=== PATIENT | male | born 1970 | race Caucasian/White ===

== ENCOUNTER 2023-04-01 06:55 | Outpatient (OUT) | payer OTHER, SELFPAY ==
[2023-04-01 07:15] LABS: Basophils Absolute Auto 0.1 10^3/uL (0.0-0.1); Basophils Percent Auto 1.2 % (0.2-2.0); Eosinophils Absolute Auto 0.2 10^3/uL (0.0-0.7); Eosinophils Percent Auto 3.3 % (0.9-7.0); Hematocrit 45.6 % (42.0-54.0); Hemoglobin 15.1 g/dL (14.0-18.0); Immature Granulocytes Abs Auto 0.01 10^3/uL (0.00-0.03); Immature Granulocytes Pct Auto 0.2 % (0.0-0.5); Lymphocytes Absolute Auto 1.9 10^3/uL (1.2-3.8); Lymphocytes Percent Auto 32.4 % (20.5-60.0); Mean Corpuscular HGB Conc 33.1 g/dL (29.9-35.2); Mean Corpuscular Hemoglobin 29.8 pg (25.9-34.0); Mean Corpuscular Volume 90.1 fL (80.0-94.0); Mean Platelet Volume 9.3 fL (9.5-13.5); Monocytes Absolute Auto 0.6 10^3/uL (0.3-0.8); Neutrophils Percent Auto 51.9 % (43.0-75.0); Platelet Count 342 10^3/uL (150-450); Red Blood Count 5.06 10^6/uL (4.70-6.10); Red Cell Distribution Width 12.2 % (11.0-15.0); White Blood Count 5.7 10^3/uL (4.0-11.0)
[2023-04-01 07:34] LABS: Alanine Aminotransferase 44 U/L (16-63); Albumin Level 3.7 g/dL (3.4-5.0); Alkaline Phosphatase 59 U/L (46-116); Anion Gap 10.3; Aspartate Amino Transferase 33 U/L (15-37); BUN Creatinine Ratio 19.8; Bilirubin Total 0.7 mg/dL (0.2-1.0); Chloride 105 mmol/L (98-107); Chol HDL Ratio 2.2; Cholesterol 187 mg/dL (<=200); Estimated GFR (African America >60 (>=60); Estimated GFR (Non-African Ame >60 (>=60); Globulin 3.6 g/dL; Glucose 95 mg/dL (74-106); HDL Cholesterol 84 mg/dL (40-60); Potassium 4.3 mmol/L (3.5-5.1); Sodium 142 mmol/L (136-145); Total Protein 7.3 g/dL (6.4-8.2); Triglycerides 31 mg/dL (<=150); VLDL CHOLESTEROL 6.2 mg/dL
[2023-04-01 08:00] LABS: Prostate Specific Antigen Dx 1.04 ng/mL (<=4.00)
== END 2023-04-01 06:56 | disposition home or self-care (01) ==
LOC: LAB 06:59
PROVIDERS: PCP Family Medicine; Visit Provider Family Medicine
DX: R73.09 Other abnormal glucose (principal); I10 Essential (primary) hypertension; F43.22 Adjustment disorder with anxiety; E29.1 Testicular hypofunction; R35.1 Nocturia
CPT/HCPCS: 36415; 80053; 80061; 84153; 85025

== ENCOUNTER 2024-10-12 07:07 | Outpatient (OUT) | payer OTHER, SELFPAY ==
--- OUTSIDE RECORDS SUMMARY | 2024-10-12 07:11 | XMS_ITS | CCD ---
Author Organization [facility] Care Team Providers Care Neonatal Pediatric Nurse Name Role Phone CHARLETTE PARTIDA Attending Unavailable CHARLETTE PARTIDA Admitting Unavailable CHARLETTE PARTIDA Primary Care Unavailable CHARLETTE PARTIDA Consulting Unavailable CHARLETTE PARTIDA Attending Unavailable CHARLETTE PARTIDA Admitting Unavailable CHARLETTE PARTIDA Consulting Unavailable Leonarda Ogden Unavailable Matt JONES Attending Unavailable Matt JONES Attending Unavailable Nicol LANCASTER Attending Unavailable Charlette Partida MD Primary Care Provider CHARLETTE PARTIDA Attending Unavailable Allergies Allergy Classification Reported Allergen(s) Allergy Type Date of Onset Reaction(s) Facility (5 sources) Codeine; Translations: [codeine] Drug Allergy 12-23-2022 [facility] Repository Medications Current Medications Medication Drug Class(es) Dates Sig (Normalized) Sig (Original) ALPRAZolam 0.5 mg oral tablet (4 sources) Benzodiazepine Start: 08-01-2024 End: 10-03-2024 take 1 tablet by mouth in the morning ALPRAZolam (Xanax) 0.5 MG tablet Indications: Adjustment disorder with anxiety Take 1 tablet (0.5 mg) by mouth in the morning and 1 tablet (0.5 mg) before bedtime. Do all this for 14 days. 28 tablet 09/19/2024 10/03/2024 Active amLODIPine 5 mg oral tablet (5 sources) Dihydropyridine Calcium Channel [place] Start: 05-27-2024 take 1 tablet by mouth once daily amLODIPine (Norvasc) 5 MG tablet Indications: Hypertension, unspecified type TAKE 1 TABLET BY MOUTH EVERY DAY AT THE SAME TIME EACH TIME 90 tablet 1 05/27/2024 Active Start: 07-18-2023 Amlodipine Act yasmeen MG PO July 18, 2023 12:00am take 1 tablet by sheryl th once daily amLODIPine Besylate 5 MG TAKE ONE TABLET BY MOUTH DAILY Oral for 30 Days Active Azithromycin (1 source) Macrolide Antimicrobial Start: 07-18-2023 Azithromycin Active 0 PO .COMPLEX July 18, 2023 12:00am For 250 mg dose pack: take 500 mg today (day 1), then 250 mg for 4 days (days 2-5) PO busPIRone hydrochloride 10 mg oral tablet (3 sources) Start: 07-22-2024 End: 08-21-2024 take 1 tablet by mouth in the morning, then take 1 tablet by mouth in the evening, then take 1 tablet by mouth at bedtime busPIRone (Buspar) 10 MG tablet Indications: Adjustment disorder with anxiety Take 1 tablet (10 mg) by mouth in the morning and 1 tablet (10 mg) in the evening and 1 tablet (10 mg) before bedtime. 90 tablet 07/22/2024 Active cyclobenzaprine hydrochloride 10 mg oral tablet (1 source) Muscle Relaxant Start: 12-18-2022 take 1 tablet by mouth every eight hours as needed Cyclobenzaprine HCl 10 MG 1 tablet Orally every 8 hours prn for 7 days Dec, Active hydroCHLOROthiazide 25 mg oral tablet (1 source) Thiazide Diuretic take 1 tablet by mouth once daily in the morning hydroCHLOROthiazide 25 MG TAKE ONE TABLET BY MOUTH DAILY IN THE MORNING Oral for 30 Days Active methylPREDNISolone 4 mg oral tablet (1 source) Corticosteroid Start: 07-18-2023 take 1 tablet by mouth once Methylprednisolone (Medrol (Josh)) 4 mg tablets,dose pack Active 0 PO per package directions July 18, 2023 12:00am PO PER PKG DIR 24 hr venlafaxine 37.5 mg extended release oral capsule (5 sources) Serotonin and Norepinephrine Reuptake Inhibitor Start: 05-27-2024 take 1 capsule by mouth once daily venlafaxine XR (Effexor XR) 37.5 MG 24 hr capsule Indications: Adjustment disorder with anxiety TAKE 1 CAPSULE BY MOUTH DAILY DO NOT CRUSH OR CHEW. 90 capsule 1 05/27/2024 Active Start: 07-18-2023 Venlafaxine Ac tive MG PO July 18, 2023 12:00am take 1 capsule by mo [facility] once daily at mealtime Venlafaxine HCl ER 37.5 MG TAKE ONE CAPSULE BY MOUTH DAILY WITH FOOD Oral for 90 Days Active Completed/Discontinued Medications Medication Drug Class(es) Dates Sig (Normalized) Sig (Original) Toradol 30 mg/ml (1 source) Start: 12-18-2022 Toradol 30 mg/ml Dec, 60 mg Problems Active Problems Problem Classification Problem Date Documented Da te Episodic/Chronic Adjustment disorders (6 sources) Adjustment disorder with anxious mood; Translations: [Adjustment disorder with anxiety] Onset: 12-23-2022 07-22-2024 Chronic Anxiety disorders (1 source) Anxiety; Translations: [Anxiety disorder, unspecified] 07-18-2023 Chronic Essential hypertension (4 sources) Hypertensive disorder; Translations: [Essential (primary) hypertension] Onset: 03-28-2023 07-18-2023 Chronic Other endocrine disorders (3 sources) Male hypogonadism; Translations: [Testicular hypofunction] Onset: 12-23-2022 12-23-2022 Chronic Other screening for suspected conditions (not mental disorders or infectious disease) (1 source) Encounter for screening for malignant neoplasm of prostate; Translations: [ENC SCREEN MALIG NEOPLASM PROSTATE] Onset: 2020 Episodic Sprains and strains (1 source) Strain of muscle, fascia and tendon of lower back, initial encounter Episodic Past or Other Problems Problem Classification Problem Date Documented Da te Episodic/Chronic Fever of unknown origin (1 source) Fever, unspecified; Translations: [FEVER UNSPECIFIED] Onset: 12-09-2019 Episodic Immunizations and screening for infectious disease (4 sources) Encounter for screening for other viral diseases; Translations: [ENC SCREENING FOR OTH VIRAL DZ] Onset: 12-06-2019 Episodic Intracranial injury (3 sources) Concussion injury of brain; Translations: [Closed head injury with concussion] Onset: 03-28-2023 03-28-2023 Episodic Results Test Name Value Interpretation Reference Range Facil ity Consenton 02-28-2023 Consent [id number] 4#1.00TIFF [facility] In office Testingon 02-29-20 23 In office Testing [id number] #1.00TIFF [facility] Registrationon 02-23-2023 Registration [id number]#1.00TIFF Normal [facility] Q - CBC W/DIFF AND PLTon BASOABS 59 cells/uL Normal 0-200 [facility] Specialist Comment on above: Order Comment: [facility] performed at: [facility], [facility], [address] , [address] [place] [address], [address] [place] [address], It Applications Manager: Blas Baca MD [facility] Date/Time: [facility] Results Received Date/Time: [facility] Reported Date/Time: Performed By: #### 1 4966, 968T, 6399, 5363X, [id number] #### [facility] Default [address] [place] [address] Basophils/100 WBC (Bld) 1.3 % Normal [facility] Comment on above: Order Comment: [facility] performed at: [facility], [address] , [address] [place] [address], [address] [place] [address], It Applications Manager: Blas Baca MD [facility] Date/Time: [facility] Results Received Date/Time: [facility] Reported Date/Time: Performed By: #### 1 4966, 968T, 6399, 5363X, [id number] #### [facility] Default [address] [place] [address] EOSABS 122 cells/uL Normal 15-500 [facility] Comment on above: Order Comment: [facility] performed at: [facility], [address], [address] [place] [address], [address] [place] [address], It Applications Manager: Blas Baca MD [facility] Date/Time: [facility] Results Received Date/Time: [facility] Reported Date/Time: Performed By: #### 1 4966, 968T, 6399, 5363X, [id number] #### [facility] [address] [place] [address] Eosinophils/100 WBC (Bld) 2.7 % Normal [facility] Programmer Comment on above: Order Comment: [facility] performed at: [facility], [facility], [address] [place] [address], [address] [place] [address], [address] [place] [address], It Applications Manager: Blas Baca MD [facility] Date/Time: [facility] Results Received Date/Time: [facility] Reported Date/Time: Performed By: #### 1 4966, 968T, 6399, 5363X, 22643S #### [facility] [address] [place] [address] Erythrocyte distribution width (RBC) [Ratio] 12.1 % Normal 11.0-15.0 [facility] Program[facility] Comment on above: Order Comment: [facility] performed at: [facility], [facility], [address] [place] [address], [address] [place] [address], [address] [place] [address], It Applications Manager: Blas Baca MD [facility] Date/Time: [facility] Results Received Date/Time: [facility] Reported Date/Time: Performed By: #### 1 4966, 968T, 6399, 5363X, [id number] #### [facility] [address] [place] [address] Hematocrit (Bld) [Volume fraction] 46.4 % Normal 38.5-50.0 [facility] Comment on above: Order Comment: [facility] performed at: [facility], [address] [place] [address], [address] [place] [address], [address] [place] [address], It Applications Manager: Blas Baca MD [facility] Date/Time: [id number] [facility] Results Received Date/Time: [facility] Reported Date/Time: Performed By: #### 1 4966, 968T, 6399, 5363X, 07137H #### [facility] [address] [place] [address] Hemoglobin (Bld) [Mass/Vol] 15.7 g/dL Normal 13.2-17.1 [facility] Comment on above: Order Comment: [facility] performed at: [facility], [facility], [address] [facility], [address] [place] [address], [address] [place] [address], It Applications Manager: Blas Baca MD [facility] Date/Time: [facility] Results Received Date/Time: [facility] Reported Date/Time: Performed By: #### 1 4966, 968T, 6399, 5363X, [id number] #### [facility] [address] [place] [address] Lymphocytes (Bld) [#/Vol] 1.229 10*3/uL Normal 850-3900 [facility] Program[facility] Comment on above: Order Comment: [facility] performed at: [facility], [facility], [address] [facility], [address] [place] [address], [address] [place] [address], It Applications Manager: Blas Baca MD [facility] Date/Time: [id number] [facility] Received Date/Time: [id number] [facility] Reported Date/Time: Performed By: #### 1 4966, 968T, 6399, 5363X, [id number] #### [facility] [address] [place] [address] Lymphocytes/100 WBC (Bld) 27.3 % Normal [facility] Comment on above: Order Comment: [facility] performed at: [facility], [facility], [address] [facility], [address] [place] [address], [address] [place] [address], It Applications Manager: Blas Baca MD [facility] Date/Time: [id number] [facility] Received Date/Time: [id number] [facility] Reported Date/Time: Performed By: #### 1 4966, 968T, 6399, 5363X, 61945L #### [facility] [address] [place] [address] MCH (RBC) [Entitic mass] 30.3 pg Normal 27.0-33.0 [facility] Comment on above: Order Comment: [facility] performed at: [facility], [facility], [address] [place] [address], [address] [place] [address], [address] [place] [address], It Applications Manager: Blas Baca MD [facility] Date/Time: [facility] Results Received Date/Time: [facility] Reported Date/Time: Performed By: #### 1 4966, 968T, 6399, 5363X, [id number] #### [facility] [address] [place] [address] MCHC (RBC) [Mass/Vol] 33.8 g/dL Normal 32.0-36.0 [facility] Specialist Comment on above: Order Comment: [facility] performed at: [facility], [facility], [address] [place] [address], [address] [place] [address], [address] [place] [address], It Applications Manager: Blas Baca MD [facility] Date/Time: [facility] Results Received Date/Time: [facility] Reported Date/Time: Performed By: #### 1 4966, 968T, 6399, 5363X, [id number] #### [facility] [address] [place] [address] MCV (RBC) [Entitic vol] 89.4 fL Normal 80.0-100.0 [facility] Specialist Comment on above: Order Comment: [facility] performed at: [facility], [facility], [address] [place] [address], [address] [place] [address], [address] [place] [address], It Applications Manager: Blas Baca MD [facility] Date/Time: [id number] [facility] Results Received Date/Time: [facility] Reported Date/Time: Performed By: #### 1 4966, 968T, 6399, 5363X, 67211X #### [facility] [address] [place] [address] MONOABS 518 cells/uL Normal 200-950 [facility] Developer Programmer Comment on above: Order Comment: [facility] performed at: [facility], [facility], [address] , [address] [place] [address], [address] [place] [address], It Applications Manager: Blas Baca MD [facility] Date/Time: [facility] Results Received Date/Time: [facility] Reported Date/Time: Performed By: #### 1 4966, 968T, 6399, 5363X, 14767T #### [facility] [address] [place] [address] Monocytes/100 WBC (Bld) 11.5 % Normal [facility] Comment on above: Order Comment: [facility] performed at: [facility], [facility], [address] , [address] [place] [address], [address] [place] [address], It Applications Manager: Blas Baca MD [facility] Date/Time: [facility] Results Received Date/Time: [facility] Reported Date/Time: Performed By: #### 1 4966, 968T, 6399, 5363X, 33309S #### [facility] [address] [place] [address] Neutrophils (Bld) [#/Vol] 2.574 10*3/uL Normal 4819-6310 [facility] Program[facility] Comment on above: Order Comment: [facility] performed at: [facility], [facility], [address] , [address] [place] [address], [address] [place] [address], It Applications Manager: Blas Baca MD [facility] Date/Time: [facility] Results Received Date/Time: [facility] Reported Date/Time: Performed By: #### 1 4966, 968T, 6399, 5363X, [id number] #### [facility] [address] [place] [address] Neutrophils/100 WBC (Bld) 57.2 % Normal [facility] Program[facility] Comment on above: Order Comment: [facility] performed at: [facility], [facility], [address] , [address] [place] [address], [address] [place] [address], It Applications Manager: Blas Baca MD [facility] Date/Time: [facility] Results Received Date/Time: [facility] Reported Date/Time: Performed By: #### 1 4966, 968T, 6399, 5363X, 91173E #### [facility] [address] [place] [address] Platelet mean volume (Bld) [Entitic vol] 10.2 fL Normal 7.5-12.5 [facility] Comment on above: Order Comment: [facility] performed at: [facility], [facility], [address] [facility], [address] [place] [address], [address] [place] [address], It Applications Manager: Blas Baca MD [facility] Date/Time: [facility] Results Received Date/Time: [facility] Reported Date/Time: Performed By: #### 1 4966, 968T, 6399, 5363X, [id number] #### [facility] [address] [place] [address] Platelets (Bld) [#/Vol] 385 10*3/uL Normal 140-400 [facility] Comment on above: Order Comment: [facility] performed at: [facility], [facility], [address] , [address] [place] [address], [address] [place] [address], It Applications Manager: Blas Baca MD [facility] Date/Time: [facility] Results Received Date/Time: [facility] Reported Date/Time: Performed By: #### 1 4966, 968T, 6399, 5363X, 35057B #### [facility] [address] [place] [address] RBC (Bld) [#/Vol] 5.19 10*6/uL Normal 4.20-5.80 [facility] Comment on above: Order Comment: [facility] performed at: [facility], [facility], [address] , [address] [place] [address], [address] [place] [address], It Applications Manager: Blas Baca MD [facility] Date/Time: [facility] Results Received Date/Time: [facility] Reported Date/Time: Performed By: #### 1 4966, 968T, 6399, 5363X, 42799T #### [facility] [address] [place] [address] WBC (Bld) [#/Vol] 4.5 10*3/uL Normal 3.8-10.8 Vonnie mckeon [place] Developer Programmer Comment on above: Order Comment: [facility] performed at: [facility], [facility], [address] [place] [address], [address] [place] [address], [address] [place] [address], It Applications Manager: Blas Baca MD [facility] Date/Time: [facility] Results Received Date/Time: [facility] Reported Date/Time: Performed By: #### 1 4966, 968T, 6399, 5363X, 14281I #### [facility] Default [address] [place] [address] Q - COMPREHENSIVE METABOLIC PANEL W/EGFRon 08-20-2021 Albumin [Mass/Vol] 4.3 g/dL Normal 3.6-5.1 Vonnie mckeon [place] Developer Programmer Comment on above: Order Comment: [facility] performed at: [facility], [facility], [address] [place] [address], [address] [place] [address], [address] [place] [address], It Applications Manager: Blas Baca MD [facility] Date/Time: [facility] Results Received Date/Time: [facility] Reported Date/Time: Performed By: #### 1 4966, 968T, 6399, 5363X, [id number] #### [facility] [address] [place] [address] Albumin/Globulin [Mass ratio] 1.9 {ratio} Normal 1.0-2.5 [facility] Program[facility] Comment on above: Order Comment: [facility] performed at: [facility], [facility], [address] [place] [address], [address] [place] [address], [address] [place] [address], It Applications Manager: Blas Baca MD [facility] Date/Time: [facility] Results Received Date/Time: [facility] Reported Date/Time: Performed By: #### 1 4966, 968T, 6399, 5363X, [id number] #### [facility] [address] [place] [address] ALP [Catalytic activity/Vol] 51 U/L Normal 35-144 [facility] Specialist Comment on above: Order Comment: [facility] performed at: [facility], [address] [place] [address], [address] [place] [address], [address] [place] [address], It Applications Manager: Blas Baca MD [facility] Date/Time: [facility] Results Received Date/Time: [facility] Reported Date/Time: Performed By: #### 1 4966, 968T, 6399, 5363X, [id number] #### [facility] [address] [place] [address] ALT [Catalytic activity/Vol] 29 U/L Normal 9-46 [facility] Specialist Comment on above: Order Comment: [facility] performed at: [facility], [facility], [address] [place] [address], [address] [place] [address], [address] [place] [address], It Applications Manager: Bals Baca MD [facility] Date/Time: [facility] Results Received Date/Time: [facility] Reported Date/Time: Performed By: #### 1 4966, 968T, 6399, 5363X, [id number] #### [facility] Default [address] [place] [address] AST [Catalytic activity/Vol] 24 U/L Normal 10-35 [facility] Specialist Comment on above: Order Comment: [facility] performed at: [facility], [facility], [address] [place] [address], [address] [place] [address], [address] [place] [address], It Applications Manager: Blas Baca MD [facility] Date/Time: [facility] Results Received Date/Time: [facility] Reported Date/Time: Performed By: #### 1 4966, 968T, 6399, 5363X, [id number] #### [facility] [address] [place] [address] Bilirubin [Mass/Vol] 0.7 mg/dL Normal 0.2-1.2 Tyrone guzmán [place] Developer Programmer Comment on above: Order Comment: [facility] performed at: [facility], [facility], [address] [facility], [address] [place] [address], [address] [place] [address], It Applications Manager: Blas Baca MD [facility] Date/Time: [facility] Results Received Date/Time: [facility] Reported Date/Time: Performed By: #### 1 4966, 968T, 6399, 5363X, [id number] #### [facility] [address] [place] [address] BUN/CREA 18 NOT APPLICABLE Normal 6-22 [facility] emiliana [place] Developer Programmer Comment on above: Order Comment: [facility] performed at: [facility], [address] [facility], [address] [place] [address], [address] [place] [address], It Applications Manager: Blas Baca MD [facility] Date/Time: [facility] Results Received Date/Time: [facility] Reported Date/Time: Performed By: #### 1 4966, 968T, 6399, 5363X, [id number] #### [facility] [address] [place] [address] Calcium [Mass/Vol] 9.5 mg/dL Normal 8.6-10.3 Vonnie [facility] Developer Programmer Comment on above: Order Comment: [facility] performed at: [facility], [address] , [address] [place] [address], [address] [place] [address], It Applications Manager: Blas Baca MD [facility] Date/Time: [facility] Results Received Date/Time: [facility] Reported Date/Time: Performed By: #### 1 4966, 968T, 6399, 5363X, [id number] #### [facility] [address] [place] [address] Chloride [Moles/Vol] 105 mmol/L Normal 98-110 [facility] Comment on above: Order Comment: [facility] performed at: [facility], [facility], [address] [facility], [address] [place] [address], [address] [place] [address], It Applications Manager: Blas Baca MD [facility] Date/Time: [facility] Results Received Date/Time: [facility] Reported Date/Time: Performed By: #### 1 4966, 968T, 6399, 5363X, [id number] #### [facility] [address] [place] [address] CO2 [Moles/Vol] 29 mmol/L Normal 20-32 [facility] Specialist Comment on above: Order Comment: [facility] performed at: [facility], [address] [facility], [address] [place] [address], [address] [place] [address], It Applications Manager: Blas Baca MD [facility] Date/Time: [facility] Results Received Date/Time: [facility] Reported Date/Time: Performed By: #### 1 4966, 968T, 6399, 5363X, 98177P #### [facility] [address] [place] [address] Creatinine [Mass/Vol] 1.06 mg/dL Normal 0.70-1.33 [facility] Specialist Comment on above: Order Comment: [facility] performed at: [facility], [address] [facility], [address] [place] [address], [address] [place] [address], It Applications Manager: Blas Baca MD [facility] Date/Time: [facility] Results Received Date/Time: [facility] Reported Date/Time: Result Comment: For patients >49 years of age, the reference limit for Creatinine is approximately 13% higher for people identified as -Bel[place]ian. Performed By: #### 1 4966, 968T, 6399, 5363X, [id number] #### [facility] [address] [place] [address] eGFRAA ([facility]) 94 mL/min/1.73m2 Normal > OR = 60 [facility] Specialist Comment on above: Order Comment: [facility] performed at: [facility], [facility], [address] [facility], [address] [place] [address], [address] [place] [address], It Applications Manager: Blas Baca MD [facility] Date/Time: [facility] Results Received Date/Time: [facility] Reported Date/Time: Performed By: #### 1 4966, 968T, 6399, 5363X, 23265I #### [facility] Default [address] [place] [address] eGFRNAA ([facility]) 81 mL/min/1.73m2 Normal > OR = 60 [facility] Specialist Comment on above: Order Comment: [facility] performed at: [facility], [address] [place] [address], [address] [place] [address], [address] [place] [address], It Applications Manager: Blas Baca MD [facility] Date/Time: [facility] Results Received Date/Time: [facility] Reported Date/Time: Performed By: #### 1 4966, 968T, 6399, 5363X, [id number] #### [facility] [address] [place] [address] Globulin (S) [Mass/Vol] 2.3 g/dL Normal 1.9-3.7 [facility] Comment on above: Order Comment: [facility] Testing performed at: [facility], [address] [facility], [address] [place] [address], [address] [place] [address], It Applications Manager: Blas Baca MD [facility] Collection Date/Time: [facility] Results Received Date/Time: [facility] Reported Date/Time: Performed By: #### 1 4966, 968T, 6399, 5363X, [id number] #### [facility] Default [address] [place] [id number] Glucose [Mass/Vol] 96 mg/dL Normal 65-99 Von[place] [facility] [place] Developer Programmer Comment on above: Order Comment: [facility] Testing performed at: [facility], [facility], [address] [facility], [address] [place] [address], [address] [place] [address], It Applications Manager: Blas Baca MD [facility] Collection Date/Time: [facility] Results Received Date/Time: [facility] Reported Date/Time: Result Comment: Fasting reference interval Performed By: #### 1 4966, 968T, 6399, 5363X, [id number] #### [facility] Default [address] [place] [address] Potassium [Moles/Vol] 4.7 mmol/L Normal 3.5-5.3 [facility] Comment on above: Order Comment: [facility] Testing performed at: [facility], [facility], [address] [place] [address], [address] [place] [address], [address] [place] [address], It Applications Manager: Blas Baca MD [facility] Collection Date/Time: [facility] Results Received Date/Time: [facility] Reported Date/Time: Performed By: #### 1 4966, 968T, 6399, 5363X, [id number] #### [facility] Default [address] [place] [address] Protein [Mass/Vol] 6.6 g/dL Normal 6.1-8.1 [place] [place] Developer Programmer Comment on above: Order Comment: [facility] Testing performed at: [facility], [facility], [address] [facility], [address] [place] [address], [address] [place] [address], It Applications Manager: Blas Baca MD [facility] Collection Date/Time: [facility] Results Received Date/Time: [facility] Reported Date/Time: Performed By: #### 1 4966, 968T, 6399, 5363X, [id number] #### [facility] [address] [place] [address] Sodium [Moles/Vol] 141 mmol/L Normal 135-146 [facility] Comment on above: Order Comment: [facility] Testing performed at: [facility], [facility], [address] [facility], [address] [place] [address], [address] [place] [address], It Applications Manager: Blas Baca MD [facility] Collection Date/Time: [facility] Results Received Date/Time: [facility] Reported Date/Time: Performed By: #### 1 4966, 968T, 6399, 5363X, [id number] #### [facility] [address] [place] [address] Urea nitrogen [Mass/Vol] 19 mg/dL Normal 7-25 [facility] Comment on above: Order Comment: [facility] Testing performed at: [facility], [facility], [address] [facility], [address] [place] [address], [address] [place] [address], It Applications Manager: Blas Baca MD [facility] Collection Date/Time: [facility] Results Received Date/Time: [facility] Reported Date/Time: Performed By: #### 1 4966, 968T, 6399, 5363X, [id number] #### [facility] Default [address] [place] [address] Q - Lipid Panelon 08-20-2021 Cholesterol [Mass/Vol] 157 mg/dL Normal <200 [facility] Comment on above: Order Comment: [facility] Testing performed at: [facility], [facility], [address] [facility], [address] [place] [address], [address] [place] [address], It Applications Manager: Blas Baca MD [facility] Collection Date/Time: [facility] Results Received Date/Time: [facility] Reported Date/Time: Performed By: #### 1 4966, 968T, 6399, 5363X, [id number] #### [facility] Default [address] [place] [address] Cholesterol in HDL [Mass/Vol] 76 mg/dL Normal > OR = 40 [facility] Program[facility] Comment on above: Order Comment: [facility] Testing performed at: [facility], [facility], [address] [facility], [address] [place] [address], [address] [place] [address], It Applications Manager: Blas Baca MD [facility] Collection Date/Time: [facility] Results Received Date/Time: [facility] Reported Date/Time: Performed By: #### 1 4966, 968T, 6399, 5363X, [id number] #### [facility] Default [address] [place] [address] Cholesterol in LDL [Mass/Vol] 68 mg/dL Normal [facility] Comment on above: Order Comment: [facility] Testing performed at: [facility] [employer], [address] [facility], [address] [place] [address], [address] [place] [address], It Applications Manager: lBas Baca MD [facility] Collection Date/Time: [facility] Results Received Date/Time: [facility] Reported Date/Time: Result Comment: Refe rence range: <100 Desirable range <100 mg/dL for primary prevention; <70 mg/dL for patients with CHD or diabetic patients with > or = 2 CHD risk factors. LDL-C is now calculated using the Víctor-Shelby calculation, which is a validated novel method providing better accuracy than the Friedewald equation in the estimation of LDL-C. Víctor BRANCH et al. ONEIDA. 2013;310(19): 0511-3149 (http://education.clipkit.Comply365/faq/ZTE290) Performed By: #### 1 4966, 968T, 6399, 5363X, 63165S #### [facility] Default [address] [place] [address] Cholesterol.total/Ch olesterol in HDL [Mass ratio] 2.1 {ratio} Normal <5.0 [facility] Comment on above: Order Comment: [facility] Testing performed at: [facility], [facility], [address] [facility], [address] [place] [address], [address] [place] [address], It Applications Manager: Blas Baca MD [facility] Collection Date/Time: [facility] Results Received Date/Time: [facility] Reported Date/Time: Performed By: #### 1 4966, 968T, 6399, 5363X, [id number] #### [facility] [address] [place] [address] NON HDL CHOLESTEROL 81 mg/dL (calc) Normal <130 [facility] Comment on above: Order Comment: [facility] Testing performed at: [facility], [facility], [address] [facility], [address] [place] [address], [address] [place] [address], It Applications Manager: Blas Baca MD [facility] Collection Date/Time: [facility] Results Received Date/Time: [facility] Reported Date/Time: Result Comment: For patients with diabetes plus 1 major ASCVD risk factor, treating to a non-HDL-C goal of <100 mg/dL (LDL-C of <70 mg/dL) is considered a therapeutic option. Performed By: #### 1 4966, 968T, 6399, 5363X, [id number] #### [facility] [address] [place] [address] Triglyceride [Mass/Vol] 52 mg/dL Normal <150 [facility] Comment on above: Order Comment: [facility] Testing performed at: [facility], [facility], [address] , [address] [place] [address], [address] [place] [address], It Applications Manager: Blas Baca MD [facility] Collection Date/Time: [id number] [facility] Results Received Date/Time: [facility] Reported Date/Time: Performed By: #### 1 4966, 968T, 6399, 5363X, [id number] #### [facility] Default [address] [place] [address] Q - PSA TOTALon 08-20-2021 PSA, TOTAL 0.63 ng/mL Normal < OR = 4.00 [facility] Comment on above: Order Comment: [facility] Testing performed at: [facility], [facility], [address], [address] [place], [address], It Applications Manager: Blas Baca MD [facility] Collection Date/Time: [facility] Results Received Date/Time: [facility] Reported Date/Time: Result Comment: The total PSA value from this assay system is standardized against the WHO standard. The test result will be approximately 20% lower when compared to the equimolar-standardized total PSA (Glenny Reynolds). Comparison of serial PSA results should be interpreted with this fact in mind. This test was performed using the Siemens chemiluminescent method. Values obtained from different assay methods cannot be used interchangeably. PSA levels, regardless of value, should not be interpreted as absolute evidence of the presence or absence of disease. Performed By: #### 1 4966, 968T, 6399, 5363X, [id number] #### [facility] Default [address] [place] [address] Q - TESTOSTERONE,FREE,BIOAVA ILABLE/TOTALon 08-20-2021 Albumin [Mass/Vol] 4.2 g/dL Normal 3.6-5.1 [facility] Comment on above: Order Comment: [facility] Testing performed at: [facility], [address], [place], [place], , It Applications Manager: Jose Nelson M.D.,PhD [facility] Collection Date/Time: [facility] Results Received Date/Time: [id number] [facility] Reported Date/Time: Performed By: #### 1 4966, 968T, 6399, 5363X, [id number] #### [facility] Default [address] [place] [address] SEX HORMONE BINDING GLOBULIN 51 nmol/L High 10-50 [facility] Comment on above: Order Comment: [facility] Testing performed at: [employer] [facility], [address], [place], [place], , It Applications Manager: Jose Nelson M.D.,PhD [facility] Collection Date/Time: [facility] Results Received Date/Time: [facility] Reported Date/Time: Performed By: #### 1 4966, 968T, 6399, 5363X, [id number] #### [facility] Default [address] [place] [address] TESTOSTERONE, FREE 59.9 pg/mL Normal 46.0-224.0 [facility] Comment on above: Order Comment: [facility] Testing performed at: [facility], [address], [place], [place], , It Applications Manager: Jose Nelson M.D.,PhD [facility] Collection Date/Time: [facility] Results Received Date/Time: [facility] Reported Date/Time: Performed By: #### 1 4966, 968T, 6399, 5363X, 63152S #### [facility] Default [address] [place] [address] TESTOSTERONE, TOTAL, MS 621 ng/dL Normal 250-1100 [facility] Comment on above: Order Comment: [facility] Testing performed at: [facility] [employer], [address], [place], [place], , It Applications Manager: Jose Nelson M.D.,PhD [facility] Collection Date/Time: [facility] Results Received Date/Time: [facility] Reported Date/Time: Result Comment: For additional information, please refer to http://education.Artify It.Comply365/faq/ ShwxrPoqxcnvgldaoLSMRIKTWW205 (This link is being provided for informational/ educational purposes only.) This test was developed and its analytical performance characteristics have been determined by [employer] [place], [place]. It has not been cleared or approved by the U.S. Food and Drug Administration. This assay has been validated pursuant to the CLIA regulations and is used for clinical purposes. Performed By: #### 1 4966, 968T, 6399, 5363X, [id number] #### [facility] Default [address] [place] [address] TESTOSTERONE,BIOAVAI LABLE 115.3 ng/dL Normal 110.0-575.0 [facility] Comment on above: Order Comment: [facility] Testing performed at: [facility], [employer], [address] [facility] , [place], [place], , It Applications Manager: Jose Nelson M.D.,PhD [facility] Collection Date/Time: [id number] [facility] Results Received Date/Time: [facility] Reported Date/Time: [id number] Performed By: #### 1 4966, 968T, 6399, 5363X, [id number] #### [facility] Default [address] [place] [address] CBC AUTO DIFFon 02-22-2020 Basophils (Bld) [#/Vol] 0.1 103/ul Normal 0.0-0.1 [facility] Comment on above: Performed By: #### C BC #### [facility] [address] [place] [address] Iban Ernestina Basophils/100 WBC (Bld) 1.0 % Normal 0.2-2.0 [facility] Comment on above: Performed By: #### C BC #### [facility] [address] [place], [place] [address] Iban Ernestina Eosinophils (Bld) [#/Vol] 0.1 103/ul Normal 0.0-0.7 [facility] Comment on above: Performed By: #### C BC #### [facility] [address] [place], [place] [address] Iban Ernestina Eosinophils/100 WBC (Bld) 2.7 % Normal 0.9-7.0 [facility] Comment on above: Performed By: #### C BC #### [facility] [address] [place], [place] [address] Iban Ernestina Erythrocyte distribution width (RBC) [Ratio] 12.1 % Normal 11.0-15.0 [facility] Comment on above: Performed By: #### C BC #### [facility] [address] [place] [address] Ibanlachelle Do Hematocrit (Bld) [Volume fraction] 45.7 % Normal 42.0-54.0 [facility] Comment on above: Performed By: #### C BC #### [facility] [address] [place] [address] Iban Ernestina Hemoglobin (Bld) [Mass/Vol] 15.3 g/dL Normal 14.0-18.0 [facility] Comment on above: Performed By: #### C BC #### [facility] [address] [place] [address] Iban Ernestina IG # 0.01 10e3/ul Normal 0.00-0.03 [facility] Comment on above: Performed By: #### C BC #### [facility] [address] [place] [address] Iban Ernestina IG % 0.2 % Normal 0.0-0.5 [facility] Comment on above: Performed By: #### C BC #### [facility] [address] [place] [address] Iban Ernestina Lymphocytes (Bld) [#/Vol] 1.6 103/ul Normal 1.2-3.8 [facility] Comment on above: Performed By: #### C BC #### [facility] [address] [place] [address] Iban Do Lymphocytes/100 WBC (Bld) 30.9 % Normal 20.5-60.0 [facility] Comment on above: Performed By: #### C BC #### [facility] [address] [place], [place] [address] Iban Do MANUAL DIFF REQ NO Normal [facility] Comment on above: Performed By: #### C BC #### [facility] [address] [place] [address] Ibanlachelle Ibanezen MCH (RBC) [Entitic mass] 30.0 pg Normal 25.9-34.0 [facility] Comment on above: Performed By: #### C BC #### [facility] [address] [place], [place] [address] Ibanlachelle Do MCHC (RBC) [Mass/Vol] 33.5 g/dL Normal 29.9-35.2 [facility] Comment on above: Performed By: #### C BC #### [facility] [address] [place], [place] [address] Iban Ernestina MCV (RBC) [Entitic vol] 89.6 fL Normal 80.0-94.0 [facility] Comment on above: Performed By: #### C BC #### [facility] [address] [place], [place] [address] Iban Ernestina Monocytes (Bld) [#/Vol] 0.5 103/ul Normal 0.3-0.8 [facility] Comment on above: Performed By: #### C BC #### [facility] [address] [place], [place] [address] Iban Ernestina Monocytes/100 WBC (Bld) 10.1 % Normal 1.7-12.0 [facility] Comment on above: Performed By: #### C BC #### [facility] [address] [place] [id number] Iban Ernestina Neutrophils (Bld) [#/Vol] 2.8 103/ul Normal 1.4-6.5 [facility] Comment on above: Performed By: #### C BC #### [facility] [address] [place], [place] [address] Iban Ernestina Neutrophils/100 WBC (Bld) 55.1 % Normal 43.0-75.0 [facility] Comment on above: Performed By: #### C BC #### [facility] [address] [place], [place] [address] Iban Ernestina Platelet mean volume (Bld) [Entitic vol] 9.2 fL Critically low 9.5-13.5 [facility] Comment on above: Performed By: #### C BC #### [facility] [address] [place], [place] [address] Iban Ernestina Platelets (Bld) [#/Vol] 351 103/ul Normal 150-450 [facility] Comment on above: Performed By: #### C BC #### [facility] [address] [place], [place] [address] Iban Ernestina RBC (Bld) [#/Vol] 5.10 106/ul Normal 4.70-6.10 [facility] Comment on above: Performed By: #### C BC #### [facility] [address] [place], [place] [address] Iban Ernestina WBC (Bld) [#/Vol] 5.2 103/ul Normal 4.0-11.0 [facility] Comment on above: Performed By: #### C BC #### [facility] [address] [place] [address] Iban Ernestina LIPID PROFILEon 02-22-2020 CHOL-HDL RATIO NORM SEE BELOW Normal [facility] Comment on above: Result Comment: 3.3 - 4.4 LOW RISK 4.4 - 7.1 AVERAGE RISK 7.1 - 11.0 MODERATE RISK >11.0 HIGH RISK Performed By: #### C MP, LIPID #### [facility] [address] [place] [address] Iban Ernestina Cholesterol [Mass/Vol] 194 mg/dL Normal <=200 [facility] Comment on above: Performed By: #### C MP, LIPID #### [facility] [address] [place] [address] Iban Ernestina Cholesterol in HDL [Mass/Vol] 77 mg/dL Normal [facility] Comment on above: Performed By: #### C MP, LIPID #### [facility] [address] [place] [address] Iban Ernestina Cholesterol in HDL [Mass/Vol] > or = 60 mg/dl - LOW CARDIOVASCULAR RISK <40 mg/dl - HIGH CARDIOVASCULAR RISK Normal [facility] Comment on above: Performed By: #### C MP, LIPID #### [facility] [address] [place] [address] Iban Ernestina Cholesterol in LDL [Mass/Vol] SEE BELOW Normal [facility] Comment on above: Result Comment: <100 mg/dl OPTIMAL 100 - 129 mg/dl NEAR OR ABOVE OPTIMAL 130 - 159 mg/dl BORDERLINE HIGH 160 - 189 mg/dl HIGH >190 mg/dl VERY HIGH Performed By: #### C MP, LIPID #### [facility] [address] [place] [address] Iban Ernestina Cholesterol in LDL [Mass/Vol] 108.0 mg/dL Normal [facility] Comment on above: Performed By: #### C MP, LIPID #### [facility] [address] [place] [address] Iban Ernestina Cholesterol.total/Ch olesterol in HDL [Mass ratio] 2.5 {ratio} Normal [facility] Comment on above: Performed By: #### C MP, LIPID #### [facility] [address] [place], [place] [address] Iban Ernestina Triglyceride [Mass/Vol] 45 mg/dL Normal <=150 [facility] Comment on above: Performed By: #### C MP, LIPID #### [facility] [address] [place], [place] [address] Iban Ernestina VLDL CALC 9.0 mg/dL Normal [facility] Comment on above: Performed By: #### C MP, LIPID #### [facility] [address] [place], [place] [address] Ibanlachelle Ibanezen PROF 14(COMP METB)on 020 Albumin [Mass/Vol] 3.9 g/dL Normal 3.5-5.0 [facility] Comment on above: Performed By: #### C MP, LIPID #### [facility] [address] [place], [place] [address] Iban Ernestina Albumin/Globulin [Mass ratio] 1.3 {ratio} Normal [facility] Comment on above: Performed By: #### C MP, LIPID #### [facility] [address] [place], [place] [address] Iban Ernestina ALP [Catalytic activity/Vol] 64 U/L Normal 38-126 [facility] Comment on above: Performed By: #### C MP, LIPID #### [facility] [address] [place], [place] [address] Iban Ernestina ALT [Catalytic activity/Vol] 31 U/L Normal 21-72 [facility] Comment on above: Performed By: #### C MP, LIPID #### [facility] [address] [place] [id number] Iban Ernestina Anion gap [Moles/Vol] 10.5 mmol/L Normal [facility] Comment on above: Performed By: #### C MP, LIPID #### [facility] [address] [place] [address] Iban Ernsetina AST [Catalytic activity/Vol] 19 U/L Normal 17-59 [facility] Comment on above: Performed By: #### C MP, LIPID #### [facility] [address] [place] [address] Iban Ernestina Bilirubin Ql (U) 0.8 mg/dL Normal 0.2-1.3 [facility] Comment on above: Performed By: #### C MP, LIPID #### [facility] [address] [place] [address] Iban Ernestina Calcium [Mass/Vol] 9.2 mg/dL Normal 8.4-10.2 [facility] Comment on above: Performed By: #### C MP, LIPID #### [facility] [address] [place], [place] [address] Iban Ernestina Chloride [Moles/Vol] 104 mmol/L Normal 98-107 [facility] Comment on above: Performed By: #### C MP, LIPID #### [facility] [address] [place] [address] Iban Ernestina CO2 [Moles/Vol] 29.8 mmol/L Normal 22.0-30.0 [facility] Comment on above: Performed By: #### C MP, LIPID #### [facility] [address] [place] [address] Iban Ernestina Creatinine [Mass/Vol] 0.93 mg/dL Normal 0.66-1.25 [facility] Comment on above: Performed By: #### C MP, LIPID #### [facility] [address] [place] [address] Iban Ernestina EGFR-AF EGYPTIAN >60 Normal >=60 [facility] Comment on above: Performed By: #### C MP, LIPID #### [facility] [address] [place], [place] [address] Iban Ernestina EGFR-NON AF EGYPTIAN >60 Normal >=60 [facility] Comment on above: Performed By: #### C MP, LIPID #### [facility] [address] [place] [address] Iban Ernestina Globulin (S) [Mass/Vol] 2.9 g/dL Normal [facility] Comment on above: Performed By: #### C MP, LIPID #### [facility] [address] [place] [address] Iban Ernestina Glucose [Mass/Vol] 102 mg/dL Normal 74-106 [facility] Comment on above: Performed By: #### C MP, LIPID #### [facility] [address] [place] [address] Iban Ernestina Potassium [Moles/Vol] 4.3 mmol/L Normal 3.4-5.0 [facility] Comment on above: Performed By: #### C MP, LIPID #### [facility] [address] [place] [address] Iban Ernestina Protein [Mass/Vol] 6.8 g/dL Normal 6.1-8.2 [facility] Comment on above: Performed By: #### C MP, LIPID #### [facility] [address] [place], [place] [address] Iban Ernestina Sodium [Moles/Vol] 140 mmol/L Normal 137-145 [facility] Comment on above: Performed By: #### C MP, LIPID #### [facility] [address] [place] [address] Iban Ernestina Urea nitrogen [Mass/Vol] 19.0 mg/dL Normal 9.0-20.0 [facility] Comment on above: Performed By: #### C MP, LIPID #### [facility] [address] [place] [address] Iban Ernestina Urea nitrogen/Creatinine [Mass ratio] 20.4 mg/mg Normal [facility] Comment on above: Performed By: #### C MP, LIPID #### [facility] [address] [place], [place] [address] Iban Do COVID-19 PCRon 12-07-2019 SARS-CoV-2, DERECK Not Detected Normal Not Detected [facility] Comment on above: Result Comment: This nucleic acid amplification test was developed and its performance characteristics determined by [employer]. Nucleic acid amplification tests include PCR and TMA. This test has not been FDA cleared or approved. This test has been authorized by FDA under an Emergency Use Authorization (EUA). This test is only authorized for the duration of time the declaration that circumstances exist justifying the authorization of the emergency use of in vitro diagnostic tests for detection of SARS-CoV-2 virus and/or diagnosis of COVID-19 infection under section 564(b)(1) of the Act, 21 U.S.C. 360bbb-3(b) (1), unless the authorization is terminated or revoked sooner. When diagnostic testing is negative, the possibility of a false negative result should be considered in the context of a patient's recent exposures and the presence of clinical signs and symptoms consistent with COVID-19. An individual without symptoms of COVID-19 and who is not shedding SARS-CoV-2 virus would expect to have a negative (not detected) result in this assay. Performed By: #### C VDPCR #### [facility] [address] [place], [place] [address] Iban Do Vital Signs Date Time Vital Sign Value Performing Clinician Facility 07-18-2023 14: Body height 187.96 cm [facility] 07-18-2023 14:040 Body mass index (BMI) [Ratio] 26.7 kg/m2 [facility] 07-18-2023 14: Body temperature 99.1 [degF] [facility] 07-18-2023 14: Body weight 94.46 kg [facility] 07-18-2023 14:040 Diastolic blood pressure 94 mm[Hg] [facility] 07-18-2023 14:040 Heart rate 72 /min [facility] 07-18-2023 14:26-0400 Respiratory rate 18 /min [facility] 07-18-2023 14:26-0400 SaO2% (BldA) [Mass fraction] 98 % [facility] 07-18-2023 14:26-0400 Systolic blood pressure 146 mm[Hg] [facility] 12-18-2022 10:00-0400 Body height 187.96 cm [facility] [place] Other [facility] 12-18-2022 10:00-0400 Body mass index (BMI) [Ratio] 27.11 kg/m2 [facility] [place] Other [facility] 12-18-2022 10:00-0400 Body temperature 98.3 [degF] [facility] [place] Other [facility] 12-18-2022 10:00-0400 Body weight 95.8 kg [facility] [place] Other [facility] Other 12-18-2022 10:00-0400 Diastolic blood pressure 87 mm[Hg] [facility] [place] Other [facility] 12-18-2022 10:00-0400 Respiratory rate 18 /min [facility] [place] Other [facility] Other 12-18-2022 10:00-0400 SaO2% (BldA) [Mass fraction] 99 % [facility] [place] Other [facility] Other 12-18-2022 10:00-0400 Systolic blood pressure 143 mm[Hg] [facility] [place] Other [facility] Other Encounters Encounter Date Encounter Type Care Provider Facility Start: 09-19-2024 End: 09-19-2024 Michael Partida MD Work Phone: [facility] Comment on above: Adjustment disorder with anxiety Start: 08-30-2024 End: 08-30-2024 Telephone encounter Charlette Partida MD Work Phone: [facility] Start: 08-01-2024 Patient encounter status Charlette Partida MD Work Phone: [facility] Start: 08-01-2024 End: 08-01-2024 ambulatory CHARLETTE PARTIDA Not Available Start: 07-22-2024 End: 07-22-2024 Telephone encounter Charlette Partida MD Work Phone: [facility] Start: 07-18-2023 End: 07-18-2023 ambulatory [facility] Work Phone: Start: 07-18-2023 End: 07-18-2023 Patient encounter procedure [facility] [place] Work Phone: Start: 02-28-2023 End: 03-01-2023 ambulatory Nicol LANCASTER [facility] Start: 02-23-2023 End: 02-24-2023 ambulatory Matt JONES [facility] Start: 12-18-2022 End: 12-18-2022 ambulatory [facility] [place] Other [facility] Other Start: 12-18-2022 Office outpatient ne w 20 minutes [facility] [place] [facility] [place] Start: 2020 Encounter for genera l adult medical examination without abnormal findings RUGEN JAQUAN [facility] Start: 02-22-2020 End: 02-23-2020 Patient encounter procedure RUGEN JAQUAN Facility:[facility] Start: 12-06-2019 End: 12-07-2019 Patient encounter procedure RUGEN JAQUAN Facility:[facility] Encounter for genera l adult medical examination without abnormal findings RUGEN JAQUAN [facility] Procedures Date Procedure Procedure Detail Performing Clinician Start: 02-22-2020 [object Object] CHARLETTE VELIZ Comment on above: Performed By: #### P SAD #### [facility] [address] [address] Iban Do Plan of Treatment Date Care Activity Detail Author Start: 08-28-2027 Screening for malign ant neoplasm of colon [facility] Start: 11-11-2024 Influenza vaccination Influenza Vacc ine (#1) [facility] Start: 08-01-2024 End: 08-01-2024 Patient encounter procedure 08/01/2024 2:00 PM EDT Office Visit [facility] [address] [facility] [address] [place] [address] Charlette Partida MD [address] [facility] [address] [place] [address] [facility] Start: 03-20-2024 Screening for malign ant neoplasm of colon [facility] Start: 1970 Screening for malign ant neoplasm of colon [facility] Immunizations Immunization Date Immunization Notes Care Provider Fa cility 01-11-2024 influenza virus vacc ine, unspecified formulation Charlette Partida MD Work Phone: [facility] 01-02-2023 Influenza, injectabl e, Madin Britney Canine Kidney, preservative free, quadrivalent Charlette Partida MD Work Phone: [facility] 12-21-2021 Influenza, injectabl e, Madin Boone Canine Kidney, preservative free, quadrivalent Charlette Partida MD Work Phone: [facility] 12-06-2021 SARS-CoV-2, Unspecified Rhoda Partida MD Work Phone: [facility] 01-10-2021 influenza, injectabl e, quadrivalent, preservative free Charlette Partida MD Work Phone: [facility] 01-14-2020 influenza, injectabl e, quadrivalent, preservative free Charlette Partida MD Work Phone: [facility] 01-09-2019 influenza, injectabl e, quadrivalent, preservative free Charlette Partida MD Work Phone: [facility] Payers Date Payer Category Payer Managed Care HMO (unspecified) [employer] [id number] 2024 Private Health Insurance [id number] 2022 Private Health Insurance [facility] [id number] 2021 Self-pay 1970 Unknown [id number] 1970 Unknown [id number] 1970 Unknown [id number] 1970 Unknown [id number] 1970 Unknown [id number] 1959 Unknown [id number] Social History Date Type Detail Facility Unknown if ever smoked [facility] Other Start: 03-28-2023 End: 07-31-2024 Sex Assigned At [facility] Start: 1970 Sex Assigned At Male [facility] Start: 03-27-2023 Tobacco smoking status NHIS Never smoked tobacco [facility] Start: 03-27-2023 Tobacco use and exposure Smokeless tobacco non-user [facility] Start: 03-28-2023 End: 08-01-2024 Alcoholic beverage intake Current drinker of alcohol (finding) [facility] Start: 03-28-2023 End: 07-31-2024 History of Social function [facility] Within the last year , have you been afraid of your partner or ex-partner? No [facility] How often do you att end meetings of the clubs or organizations you belong to? Patient declined [facility] Are you now , , , , never or living with a partner? [facility] How often to you hav e a drink containing alcohol? 2-4 times a month [facility] How many standard dr inks containing alcohol do you have on a typical day? 1 or 2 [facility] How often do you hav e 6 or more drinks on 1 occasion? Never [facility] Do you feel stress - tense, restless, nervous, or anxious, or unable to sleep at night because your mind is troubled all the time - these days [OSQ] Not at all [facility] (I/We) worried wheth er (my/our) food would run out before (I/we) got money to buy more. Never true [facility] Start: 03-27-2023 Alcohol Comment Points: 1, Interpretation: Negative [facility] Start: 1970 Sex assigned at Not on file [facility] Are you now , , , , never or living with a partner? [facility] Do you feel stress - tense, restless, nervous, or anxious, or unable to sleep at night because your mind is troubled all the time - these days [OSQ] Rather much [facility] Note 08-30-2024 Telephone Encounter - Martha Milleroleksandr - 08/30/2024 10:58 AM EDT Note Date & Type Note Facility 08-30-2024 Miscellaneous Notes Formattin g of this note might be different from the original. ALPRAZolam (Xanax) 0.5 MG tablet [facility] documented in this encounter [facility] Telephone encounter Note 08-30-2024 Telephone Encounter - Martha Travis - 08/30/2024 10:58 AM EDT Note Date & Type Note Facility 08-30-2024 Telephone encount er Note ALPRAZolam (Xanax) 0.5 MG tablet [facility] Telephone encounter Note 07-22-2024 Telephone Encounter - Charlette Partida MD - 07/22/2024 11:49 AM EDT Note Date & Type Note Facility 07-22-2024 Telephone encount er Note Patient called and had a dissolution He is having lots of anxiety Buspar prescribed [facility] Note 07-22-2024 Telephone Encounter - Charlette Partida MD - 07/22/2024 11:49 AM EDT Note Date & Type Note Facility 07-22-2024 Miscellaneous Notes Formattin g of this note might be different from the original. Patient called and had a dissolution He is having lots of anxiety Buspar prescribed documented in this encounter [facility] Evaluation note 12-18-2022 Note Date & Type Note Facility 12-18-2022 Evaluation note Encounter Date Diagnosis Assessment Notes Dec, Strain of lumbar region, initial encounter (ICD-10 - S39.012A) Patient is given 60 mg of IM Toradol in office. May resume NSAIDs tomorrow. Continue Tylenol for the rest of today. Heat and gentle stretching as tolerated encouraged. May use topical muscle rub such as Biofreeze. We will also Rx as needed Flexeril. Discussed may cause drowsiness, caution advised. Avoid strenuous activity when possible. Follow-up with PCP if not gradually improving over the next week or significantly worsening. Patient verbalized understanding of treatment plan. [facility] Other Evaluation note Note Date & Type Note Facility Evaluation note No assessment information [facility] Work Phone: Evaluation note Note Date & Type Note Facility Evaluation note Diagnosis Closed head injury with concussion, without loss of consciousness, initial encounter- Primary Abnormal glucose tolerance test Impaired glucose tolerance test Benign essential hypertension (CMS/HCC) Essential hypertension, benign Nocturia Adjustment disorder with anxiety (CMS/HCC) Adjustment disorder with anxiety Male hypogonadism Other testicular hypofunction Primary hypertension (CMS/HCC) Unspecified essential hypertension Adjustment disorder with anxiety (CMS/HCC)- Primary Adjustment disorder with anxiety documented in this encounter [facility] Evaluation note Note Date & Type Note Facility Evaluation note Diagnosis Closed head injury with concussion, without loss of consciousness, initial encounter- Primary Abnormal glucose tolerance test Impaired glucose tolerance test Benign essential hypertension Essential hypertension, benign Nocturia Adjustment disorder with anxiety Adjustment disorder with anxiety Male hypogonadism Other testicular hypofunction Primary hypertension Unspecified essential hypertension Well adult health check- Primary Unspecified general medical examination Abnormal glucose tolerance test Impaired glucose tolerance test Benign essential hypertension Essential hypertension, benign Nocturia Annual physical exam Routine general medical examination at a health care facility Screening for lipid disorders Screening for colon cancer Special screening for malignant neoplasms, colon Adjustment disorder with anxiety Adjustment disorder with anxiety Adjustment disorder with anxiety Adjustment disorder with anxiety documented in this encounter [facility] Evaluation note Note Date & Type Note Facility Evaluation note Diagnosis Closed head injury with concussion, without loss of consciousness, initial encounter- Primary Abnormal glucose tolerance test Impaired glucose tolerance test Benign essential hypertension Essential hypertension, benign Nocturia Adjustment disorder with anxiety Adjustment disorder with anxiety Male hypogonadism Other testicular hypofunction Primary hypertension Unspecified essential hypertension Well adult health check- Primary Unspecified general medical examination Abnormal glucose tolerance test Impaired glucose tolerance test Benign essential hypertension Essential hypertension, benign Nocturia Annual physical exam Routine general medical examination at a health care facility Screening for lipid disorders Screening for colon cancer Special screening for malignant neoplasms, colon Adjustment disorder with anxiety Adjustment disorder with anxiety Adjustment disorder with anxiety Adjustment disorder with anxiety documented in this encounter [facility] History general Narrative - Reported Note Date & Type Note Facility History general Narrative - Reported Type Medical History high blood pressure Medical History anxiety Surgical History umbilical hernia repair Surgical History tendon repair on thumb Hospitalization History See Above [facility] Other Summary Purpose Family History No Family History Records FoundNo Family History Records FoundNo Family History Records FoundNo Family History Records Found Advance Directives Advance Directive Response Recorded Date/ Time Advance Directives No July 18, 2023 2:17pm Chief Complaint and Reason for Visit Chief Complaint congested//cough Additional Source Comments (unrecognized sect ion and content) No Status Records FoundNo Status Records FoundNo Status Records FoundNo Status Records Found INFORMATION SOURCE (unrecogn ized section and content) DATE CREATED AUTHOR 03/10/2020 [facility] DATE CREATED AUTHOR AUTHOR'S ORGANIZ ATION 08/27/2021 [facility] DATE CREATED AUTHOR AUTHOR'S ORGANIZ ATION 03/01/2023 Deluna Morrill [facility] DATE CREATED AUTHOR AUTHOR'S ORGANIZ ATION 08/08/2024 [facility]ists EPIC REASON FOR VISIT (unrecogniz ed section and content) Reason Onset Date Comments Med Refill 09/19/2024 Care Teams (unrecognized sec tion and content) Team Status: Active Member Role Status Dates Chareltte Partida MD Primary Care Provider Active Team Status: Inactive Member Role Status Dates Charlette Partida MD Primary Care Provider Active S tart: July 18, 2023 End: July 18, 2023 Alejandrina Melendrez RN Attending Provider Active Start : July 18, 2023 End: July 18, 2023 Neonatal Pediatric Nurse Relationship Specialty Start Date End Date Charlette Partida MD [address] [facility] [address] [place] [address] PCP - General Family Medicine 07/19/22 Neonatal Pediatric Nurse Relationship Specialty Start Date End Date Charlette Partida MD [address] [facility] [address] [place] [address] PCP - General Family Medicine 07/19/22 Neonatal Pediatric Nurse Relationship Specialty Start Date End Date Charlette Partida MD [address] [facility] [address] [place] [address] PCP - General Family Medicine 07/19/22 Goals (unrecognized section and content) Goals may be documented in a n alternate section FOR RECORDS PERTAINING TO PATIENTS WHO ARE OR HAVE BEEN ENROLLED IN A CHEMICAL DEPENDENCY/SUBSTANCEABUSE PROGRAM, SOME INFORMATION MAY BE OMITTED. This clinical summary was aggregated from multiple sources. Caution should be exercised in using it in the provision of clinical care. This summary normalizes information from multiple sources, and as a consequence, information in this document may materially change the coding, format and clinical context of patient data. In addition, data may be omitted in some cases. CLINICAL DECISIONS SHOULD BE BASED ON THE PRIMARY CLINICAL RECORDS. [facility] [employer] [facility]. provides no warranty or guarantee of the accuracy or completeness of information in this document.
--- OUTSIDE RECORDS SUMMARY | 2024-10-12 07:12 | XMS_ITS | Encounter Summary ---
Author Organization [facility] Address [address] [place] [address] Care Team Providers Care Grocery Store Clerk Name Role Phone Charlette Alfonso MD Primary Care Provider [phone] Encounter Details Date Type Department Care Team (Late st Contact Info) Description 12/19/2022 Abstract [facility] [address] [facility] [address] [place] [address] Charlette Alfonso MD [address] [facility] [address] [place] [address] Social History Tobacco Use Types Packs/Day Years Used Date Smoking Tobacco: Never Assessed Sex and Gender Information Value Date Recorded Sex Assigned at Not on file Legal Sex Male 7:32 PM EDT Gender Identity Not on file Sexual Orientation Not on file documented as of this encounter Plan of Treatment Not on file documented as of this encounter Visit Diagnoses Not on filedocumented in this encounter Care Teams Grocery Store Clerk Relationship Specialty Start Date End Date Charlette Alfonso MD [address] [place] [address] PCP - General Family Medicine 07/19/22 documented as of this encounter
--- OUTSIDE RECORDS SUMMARY | 2024-10-12 07:12 | XMS_ITS | Encounter Summary ---
Author Organization [facility] Address [address] [place] [address] Care Team Providers Care Cargo Inspector Name Role Phone Charlette Alfonso MD Primary Care Provider [phone] Encounter Details Date Type Department Care Team (Late st Contact Info) Description 07/18/2023 Abstract [facility] [address] [facility] [address] [place] [id number] Charlette Alfonso MD [address] [facility] [address] [place] [address] Social History Tobacco Use Types Packs/Day Years Used Date Smoking Tobacco: Never Smokeless Tobacco: Never Alcohol Use Standard Drinks/Week Comments Yes 0 (1 standard drink = 0.6 oz pure alcohol) Points: 1, Interpretation: Negative Humiliation, Afraid, Rape, and Kick questionnair e Answer Date Recorded Within the last year, have y ou been afraid of your partner or ex-partner? No 03/28/2023 Within the last year, have y ou been humiliated or emotionally abused in other ways by your partner or ex-partner? No Within the last year, have y ou been kicked, hit, slapped, or otherwise physically hurt by your partner or ex-partner? No 03/28/2023 Within the last year, have y ou been raped or forced to have any kind of sexual activity by your partner or ex-partner? No 03/28/2023 Social Connection and Isolat ion Panel [NHANES] Answer Date Recorded In a typical week, how many times do you talk on the phone with family, friends, or neighbors? Twice a week 03/28/2023 How often do you get togethe r with friends or relatives? Twice a week 03/28/2023 How often do you attend chur or anabaptism services? More than 4 times per year 03/28/2023 Do you belong to any clubs o r organizations such as rastafarian groups, unions, fraternal or athletic groups, or school groups? No 03/28/2023 How often do you attend meet ings of the clubs or organizations you belong to? Patient declined 03/28/2023 Are you , , di vorced, , never , or living with a partner? 03/28/2023 AUDIT-C Answer Date Recorded Q1: How often do you have a drink containing alc ohol? 2-4 times a month 03/28/2023 Q2: How many drinks containi ng alcohol do you have on a typical day when you are drinking? 1 or 2 03/28/2023 Q3: How often do you have si x or more drinks on one occasion? Never 03/28/2023 Overall Financial Resource Strain (CARDIA) Answe r Date Recorded How hard is it for you to pa y for the very basics like food, housing, medical care, and heating? Not hard at all 03/28/2023 [facility] - Occupational Stress Questionnaire Answer Date Recorded Do you feel stress - tense, restless, nervous, or anxious, or unable to sleep at night because your mind is troubled all the time - these days? Not at all 03/28/2023 Exercise Vital Sign Answer Date Recorde d On average, how many days pe r week do you engage in moderate to strenuous exercise (like a brisk walk)? 5 days 03/28/2023 On average, how many minutes do you engage in exercise at this level? 60 min 03/28/2023 Hunger Vital Sign Answer Date Recorded Within the past 12 months, y ou worried that your food would run out before you got the money to buy more. Never true 03/28/19 24 Within the past 12 months, t he food you bought just didn't last and you didn't have money to get more. Never true 03/28/2023 PRAPARE - Transportation Answer Date Re corded In the past 12 months, has l ack of transportation kept you from medical appointments or from getting medications? No 03/13 In the past 12 months, has l ack of transportation kept you from meetings, work, or from getting things needed for daily living? No 03/28/2023 Housing Stability Vital Sign Answer Fabián e Recorded In the last 12 months, was t here a time when you were not able to pay the mortgage or rent on time? No 03/28/2023 In the last 12 months, how many places have you lived? 1 03/28/2023 In the last 12 months, was t here a time when you did not have a steady place to sleep or slept in a assisted (including now)? No 03/28/2023 Sex and Gender Information Value Date Recorded Sex Assigned at Not on file Legal Sex Male 7:32 PM EDT Gender Identity Not on file Sexual Orientation Not on file documented as of this encounter Plan of Treatment Not on file documented as of this encounter Visit Diagnoses Not on filedocumented in this encounter Care Teams Cargo Inspector Relationship Specialty Start Date End Date Charlette Alfonso MD [address] [facility] [address] [place] [address] PCP - General Family Medicine 07/19/22 documented as of this encounter
--- OUTSIDE RECORDS SUMMARY | 2024-10-12 07:12 | XMS_ITS | Encounter Summary ---
Author Organization [facility] Address [address] [place] [address] Care Team Providers Care Track Oiler Name Role Phone Charlette Alfonso MD Primary Care Provider [phone] Encounter Details Date Type Department Care Team (Late st Contact Info) Description 08/12/2024 Abstract [facility] [address] [facility] [address] [place] [address] Charlette Alfonso MD 112 [place] [facility] [address] [place] [address] Social History Tobacco Use Types Packs/Day Years Used Date Smoking Tobacco: Never Smokeless Tobacco: Never Alcohol Use Standard Drinks/Week Comments Yes 2 (1 standard drink = 0.6 oz pure alcohol) Points: 1, Interpretation: Negative B1300 Health Literacy Answer Date Recor ded How often do you need to hav e someone help you when you read instructions, pamphlets, or other written material from your doctor or pharmacy? Never 07/31/2024 Humiliation, Afraid, Rape, and Kick questionnair e Answer Date Recorded Within the last year, have y ou been afraid of your partner or ex-partner? No 07/31/2024 Within the last year, have y ou been humiliated or emotionally abused in other ways by your partner or ex-partner? No Within the last year, have y ou been kicked, hit, slapped, or otherwise physically hurt by your partner or ex-partner? No 07/31/2024 Within the last year, have y ou been raped or forced to have any kind of sexual activity by your partner or ex-partner? No 07/31/2024 Social Connection and Isolat ion Panel [NHANES] Answer Date Recorded In a typical week, how many times do you talk on the phone with family, friends, or neighbors? Three times a week 07/31/2024 How often do you get togethe r with friends or relatives? Twice a week 07/31/2024 How often do you attend chur or mormonism services? More than 4 times per year 07/31/2024 Do you belong to any clubs o r organizations such as jehovah's witness groups, unions, fraternal or athletic groups, or school groups? No 07/31/2024 How often do you attend meet ings of the clubs or organizations you belong to? 1 to 4 times per year 07/31/2024 Are you , , di vorced, , never , or living with a partner? 07/31/2024 AUDIT-C Answer Date Recorded Q1: How often do you have a drink containing alc ohol? 2-4 times a month 07/31/2024 Q2: How many drinks containi ng alcohol do you have on a typical day when you are drinking? 1 or 2 07/31/2024 Q3: How often do you have si x or more drinks on one occasion? Never 07/31/2024 Overall Financial Resource Strain (CARDIA) Answe r Date Recorded How hard is it for you to pa y for the very basics like food, housing, medical care, and heating? Not hard at all 07/31/2024 PHQ-2 Answer Date Recorded Patient Health Questionnaire-2 Score 0 08/01/2024 [facility] - Occupational Stress Questionnaire Answer Date Recorded Do you feel stress - tense, restless, nervous, or anxious, or unable to sleep at night because your mind is troubled all the time - these days? Rather much 07/31/2024 Exercise Vital Sign Answer Date Recorde d On average, how many days pe r week do you engage in moderate to strenuous exercise (like a brisk walk)? 5 days 07/31/2024 On average, how many minutes do you engage in exercise at this level? 120 min 07/31/2024 Hunger Vital Sign Answer Date Recorded Within the past 12 months, y ou worried that your food would run out before you got the money to buy more. Never true 08/01/19 25 Within the past 12 months, t he food you bought just didn't last and you didn't have money to get more. Never true 07/31/2024 PRAPARE - Transportation Answer Date Re corded In the past 12 months, has l ack of transportation kept you from medical appointments or from getting medications? No 07/12 In the past 12 months, has l ack of transportation kept you from meetings, work, or from getting things needed for daily living? No 07/31/2024 Housing Stability Vital Sign Answer Fabián e [...] place to sleep or slept in a long-term (including now)? No 03/28/2023 Housing Stability Vital Sign Answer Fabián e Recorded In the last 12 months, was t here a time when you were not able to pay the mortgage or rent on time? No 07/31/2024 In the past 12 months, how m any times have you moved where you were living? 2 07/31/2024 At any time in the past 12 m [facility], were you homeless or living in a long-term (including now)? No 07/31/2024 Sex and Gender Information Value Date Recorded Sex Assigned at Not on file Legal Sex Male 7:32 PM EDT Gender Identity Not on file Sexual Orientation Not on file documented as of this encounter Plan of Treatment Not on file documented as of this encounter Visit Diagnoses Not on filedocumented in this encounter Care Teams Track Oiler Relationship Specialty Start Date End Date Charlette Alfonso MD 112 [facility] [address] [place] [address] PCP - General Family Medicine 07/19/22 documented as of this encounter
--- OUTSIDE RECORDS SUMMARY | 2024-10-12 07:12 | XMS_ITS | Clinical Summary ---
Author Organization [facility] Address [address] [place] [address] Care Team Providers Care Supervisor Framing Mill Name Role Phone Charlette Alfonso MD Primary Care Provider [phone] Allergies Active Allergy Reactions Criticality Noted Date Comments Codeine 12/23/2022 Other Reaction(s): Unknown Medications amLODIPine (Norvasc) 5 MG tabletIndication s:Hypertension, unspecified type TAKE 1 TABLET BY MOUTH EVERY DAY AT THE SAME TIME EACH TIME 90 tablet 1 5 Active venlafaxine XR (Effexor XR) 37.5 MG 24 hr capsuleIndicatio ns:Adjustment disorder with anxiety TAKE 1 CAPSULE BY MOUTH DAILY DO NOT CRUSH OR CHEW. 90 capsule 1 5 Active busPIRone (Buspar) 10 MG tabletIndication s:Adjustment disorder with anxiety Take 1 tablet (10 mg) by mouth in the morning and 1 tablet (10 mg) in the evening and 1 tablet (10 mg) before bedtime. 90 tablet 5 Active ALPRAZolam (Xanax) 0.5 MG tabletIndication s:Adjustment disorder with anxiety Take 1 tablet (0.5 mg) by mouth in the morning and 1 tablet (0.5 mg) before bedtime. Do all this for 14 days. 28 tablet 5 Active ALPRAZolam (Xanax) 0.5 MG tabletIndication s:Adjustment disorder with anxiety Take 1 tablet (0.5 mg) by mouth in the morning and 1 tablet (0.5 mg) before bedtime. Do all this for 14 days. 28 tablet 5 09/20/19 25 Discontinu ed(Reorder ) Active Problems Problem Noted Date Diagnosed Date Well adult health check 08/01/2024 Assessment & Plan (08/01/2024 1:56 PM EDT): Modest Alcohol consumption No Tobacco Seat Belt use Exercise Regularly No Text Drive Social Accountability Closed head injury with concussion 03/28/2023 Assessment & Plan (03/28/2023 3:04 PM EST): Reassurance Reduce neurologic stimuli If persists consider imaging Benign essential hypertension 03/28/2023 Assessment & Plan (08/01/2024 1:55 PM EDT): Our specific goals, for your hypertension, is to keep your blood pressure less than 140/90, and the importance of weight control. We made recommendations on how to control your blood pressure, and minimize your risk of these copmplications. We also discussed your current barriers to a healthy living and importance of healthy diet and exercise. Prior to your visit today we have reviewed your chart and formed a plan to assist with providing you the best possible care. We reviewed the possible complications of hypertension including, stroke, heart failure and kidney impairment. In addition, we discussed your medications, the importance of taking them as prescribed. DASH diet handouts Assessment & Plan (03/28/2023 3:03 PM EST): Our specific goals, for your hypertension, is to keep your blood pressure less than 140/90, and the importance of weight control. We made recommendations on how to control your blood pressure, and minimize your risk of these copmplications. We also discussed your current barriers to a healthy living and importance of healthy diet and exercise. Prior to your visit today we have reviewed your chart and formed a plan to assist with providing you the best possible care. We reviewed the possible complications of hypertension including, stroke, heart failure and kidney impairment. In addition, we discussed your medications, the importance of taking them as prescribed. [place] diet handouts Adjustment disorder with anxiety 12/23/2022 Assessment & Plan (08/01/2024 1:57 PM EDT): Doing Buspirone and Venlafaxine Male hypogonadism 12/23/2022 Encounters Date Type Department Care Team Description 09/19/2024 Refill [facility] [address] [place] [address] Charlette Alfonso MD Adjustment disorder with anxiety 08/30/2024 Telephone [facility] [address] [address] [place] [address] Charlette Alfonso MD 08/12/2024 Abstract [facility] [place] [address] [address] [place] [address] Charlette Alfonso MD 08/01/2024 2:00 PM EDT Office Visit [facility] [place] [address] [place] [address] Charlette Alfonso MD Well adult health check (Primary Dx); Abnormal glucose tolerance test; Benign essential hypertension ; Nocturia; Annual physical exam; Screening for lipid disorders; Screening for colon cancer; Adjustment disorder with anxiety 08/01/2024 Bamboo flowsheet [facility] [address] [address] [place] [phone] Charlette Alfonso MD 08/01/2024 Travel 07/31/2024 Travel 07/22/2024 Telephone [facility] [place] [facility] [address] [address] [place] [phone] Charlette Alfonso MD from Last 3 Months Immunizations Immunization Administration Dates Next Due Influenza, injectable, MDCK, preservative free, quadrivalent 01/02/2023,12/21/2021 Influenza, injectable, quadr ivalent, preservative free 01/10/2021,01/14/2020,01/09/2019 SARS-CoV-2, Unspecified 12/06/2021 Social History Tobacco Use Types Packs/Day Years Used Date Smoking Tobacco: Never Smokeless Tobacco: Never Tobacco Cessation:Counseling Given: Not Answered Alcohol Use Standard Drinks/Week Comments Yes 2 [...] 07/31/2024 How often do you attend chur ch or taoist services? More than 4 times per year 07/31/2024 Do you belong to any clubs o r organizations such as congregational groups, unions, fraternal or athletic groups, or [...] Recorded Patient Health Questionnaire-2 Score 0 08/01/2024 [facility] - Occupational Stress Questionnaire Answer Date Recorded [...] any time in the past 12 m [facility], were you homeless or living in a long-term (including now)? No 07/31/2024 Sex and Gender Information Value Date Recorded Sex Assigned at Not on file Legal Sex Male 7:32 PM EDT Gender Identity Not on file Sexual Orientation Not on file Last Filed Vital Signs Vital Sign Reading Time Taken Comments Blood Pressure 134/72 08/01/2024 1:49 PM EDT Pulse 98 08/01/2024 1:49 PM EDT Temperature - - Respiratory Rate - - Oxygen Saturation 96% 08/01/2024 1:49 PM EDT Inhaled Oxygen Concentration - - Weight 89.8 kg (198 lb) 08/01/2024 1:49 PM EDT Height 188 cm (6' 2 ) 08/01/2024 1:49 PM EDT Body Mass Index 25.42 08/01/2024 1:49 PM EDT Plan of Treatment Health Maintenance Due Date Last Done Comments CT Colonography 1970 Colonoscopy 1970 FIT 1970 FOBT 1970 Sigmoidoscopy 1970 Influenza Vaccine (#1) 2024 , 01/02/2023, 12/21/2021, Additional history exists Colorectal Cancer Screening 08/28/2027 FIT-DNA 08/28/2027 08/27/2024, 03/20/2021, 10/2021 Procedures Procedure Name Priority Date/Time Associated Diagnosis Comments LAB COLOGUARD COLON CANCER SCREEN Routine 08/27/2024 4:00 PM EDT Screening for colon cancer LAB COLOGUARD COLON CANCER SCREEN- Unsuccessful Attempt Routine 08/18/2024 6:30 AM EDT Screening for colon cancer from Last 3 Months Results * Cologuard?? colon cancer screening (08/27/2024 4:00 PM EDT) Only the most recent of2 resultswithin the time period is included. NONINV COLON CA DNA+OCC BLD SCRN STL-IMP Negative Negative 09/01/2024 12:34 PM EDT [facility] (CLIA #:[id number]) Comment: The Cologuard (TM) test was performed on this specimen. NEGATIVE TEST RESULT. A negative Cologuard result indicates a low likelihood that a colorectal cancer (CRC) or advanced adenoma (adenomatous polyps with more advanced pre-malignant features) is present. The chance that a person with a negative Cologuard test has a colorectal cancer is less than 1 in 1500 (negative predictive value >99.9%) or has an advanced adenoma is less than 5.3% (negative predictive value 94.7%). These data are based on a prospective cross-sectional study of 10,000 individuals at average risk for colorectal cancer who were screened with both Cologuard and colonoscopy. (Aixa Cabrera al, N Engl J Med 2014;370(14):1286- 1297) The normal value (reference range) for this assay is negative. COLOGUARD RE-SCREENING RECOMMENDATION: Periodic colorectal cancer screening is an important part of preventive healthcare for asymptomatic individuals at average risk for colorectal cancer. Following a negative Cologuard result, the [place] [employer] Society and U.S. Multi-Society Task Force screening guidelines recommend a Cologuard re-screening interval of 3 years. References: [place] [employer] Guideline for Colorectal Cancer Screening: https://www.cancer.org/cancer/lzohl-blfdxx-xfefnm/hoqobnclu-rhjngmbkx-gqqyfje/ac s-rec ommendations.html.; Gilles DK, Sweta RANDHAWA, Kyrie PalenciaK, Colorectal Cancer Screening: Recommendations for Physicians and Patients from the U.S. Multi-Society Task Force on Colorectal Cancer Screening , Am J Gastroenterology 2017; 112:9752-7501. TEST DESCRIPTION: Composite algorithmic analysis of stool DNA-biomarkers with hemoglobin immunoassay. Quantitative values of individual biomarkers are not reportable and are not associated with individual biomarker result reference ranges. Cologuard is intended for colorectal cancer screening of adults of either sex, 45 years or older, who are at average-risk for colorectal cancer (CRC). Cologuard has been approved for use by the U.S. FDA. The performance of Cologuard was established in a cross sectional study of average-risk adults aged 50-84. Cologuard performance in patients ages 45 to 49 years was estimated by sub-group analysis of near-age groups. Colonoscopies performed for a positive result may find as the most clinically significant lesion: colorectal cancer [4.0%], advanced adenoma (including sessile serrated polyps greater than or equal to 1cm diameter) [20%] or non- advanced adenoma [31%]; or no colorectal neoplasia [45%]. These estimates are derived from a prospective cross-sectional screening study of 10,000 individuals at average risk for colorectal cancer who were screened with both Cologuard and colonoscopy. (Aixa Cabrera al, N Engl J Med 2014;370(14):2495-7213.) Cologuard may produce a false negative or false positive result (no colorectal cancer or precancerous polyp present at colonoscopy follow up). A negative Cologuard test result does not guarantee the absence of CRC or advanced adenoma (pre-cancer). The current Cologuard screening interval is every 3 years. ([place] [employer] and U.S. Multi-Society Task Force). Cologuard performance data in a 10,000 patient pivotal study using colonoscopy as the reference method can be accessed at the following location: www.ViewsIQ.Ultora/results. Additional description of the Cologuard test process, warnings and precautions can be found at www.ThinkVidyaoguard.com. Stool specimen (specimen) Rectal contents / Unknown 08/27/2024 4:00 PM EDT 08/29/2024 12:48 PM EDT Charlette Alfonso MD LAB MOLECULAR DIAGNOSTICS ORDERA BLES Final Result .[facility] (CLIA #:[id number]) [address] [id number], [facility] (CLIA #:[id number]) [address] [id number] from Last 3 Months Insurance [employer] Care Teams Supervisor [employer] Mill Relationship Specialty Start Date End Date Charlette Alfonso MD [address] [address] PCP - General Family Medicine 07/19/22
--- OUTSIDE RECORDS SUMMARY | 2024-10-12 07:12 | XMS_ITS | Encounter Summary ---
Author Organization [facility] Address [address] [place] [address] Care Team Providers Care Neurological Physiotherapist Name Role Phone Charlette Alfonso MD Primary Care Provider [phone] Encounter Details Date Type Department Care Team (Late st Contact Info) Description 04/03/2023 Orders Only [facility] [place] [facility] [address] [place] [address] [place] [id number] A, Unknown Practice [address] [phone] Social History Tobacco Use Types Packs/Day Years [...] 03/28/2023 How often do you attend chur ch or jew services? More than 4 times per year 03/28/2023 Do you belong to any clubs o r organizations such as amish groups, unions, fraternal or athletic groups, or [...] and heating? Not hard at all 03/28/2023 [facility] [place] [facility] Occupat ional Health - Occupational Stress [...] place to sleep or slept in a penitentiary (including now)? No 03/28/2023 Sex and Gender Information Value Date Recorded Sex Assigned at Not on file Legal Sex Male 7:32 PM EDT Gender Identity Not on file Sexual Orientation Not on file documented as of this encounter Plan of Treatment Not on file documented as of this encounter Procedures Procedure Name Priority Date/Time Associated Diagnosis Comments SCANNED LABS Routine 04/01/2023 10:17 AM EST documented in this encounter Results * SCANNED LABS (04/01/2023 10:17 AM EST) us Unknown Practice A LAB CHG PERFORMABLES Final Re sult documented in this encounter Visit Diagnoses Not on filedocumented in this encounter Care Teams Neurological Physiotherapist Relationship Specialty Start Date End Date Charlette Alfonso MD 112 [facility] [address] [place] [address] PCP - General Family Medicine 07/19/22 documented as of this encounter
[2024-10-12 07:52] LABS: Hematocrit 44.8 % (42.0-54.0); Hemoglobin 14.9 g/dL (14.0-18.0); Immature Granulocytes Abs Auto 0.01 10^3/uL (0.00-0.03); Immature Granulocytes Pct Auto 0.2 % (0.0-0.5); Lymphocytes Absolute Auto 1.6 10^3/uL (1.2-3.8); Mean Corpuscular HGB Conc 33.3 g/dL (29.9-35.2); Mean Corpuscular Hemoglobin 30.4 pg (25.9-34.0); Mean Corpuscular Volume 91.4 fL (80.0-94.0); Platelet Count 332 10^3/uL (150-450); Red Blood Count 4.90 10^6/uL (4.70-6.10); White Blood Count 5.8 10^3/uL (4.0-11.0)
[2024-10-12 08:55] LABS: Alanine Aminotransferase 39 U/L (16-63); Albumin Globulin Ratio 1.2; Albumin Level 3.8 g/dL (3.4-5.0); Alkaline Phosphatase 69 U/L (46-116); Anion Gap 13.2; Aspartate Amino Transferase 24 U/L (15-37); Blood Urea Nitrogen 21.0 mg/dL (7.0-18.0); Calcium 9.3 mg/dL (8.5-10.1); Carbon Dioxide 30.3 mmol/L (21.0-32.0); Chloride 104 mmol/L (98-107); Cholesterol 177 mg/dL (<=200); Estimated GFR (African America >60 (>=60 mL/min/1.73m^2); Estimated GFR (Non-African Ame >60 (>=60 mL/min/1.73m^2); Globulin 3.2 g/dL; Glucose 104 mg/dL (74-106); HDL Cholesterol 96 mg/dL (40-60); Potassium 4.5 mmol/L (3.5-5.1); Sodium 143 mmol/L (136-145); Total Protein 7.0 g/dL (6.4-8.2); Triglycerides 33 mg/dL (<=150); VLDL CHOLESTEROL 6.6 mg/dL
== END 2024-10-12 07:08 | disposition home or self-care (01) ==
PROVIDERS: PCP Family Medicine; Visit Provider Family Medicine
DX: Z00.00 Encounter for general adult medical examination without abnormal findings (principal); R73.09 Other abnormal glucose; I10 Essential (primary) hypertension; R35.1 Nocturia; Z13.220 Encounter for screening for lipoid disorders
CPT/HCPCS: 36415; 80053; 80061; 85025; G0103